=== PATIENT | female | born 1935 | race Caucasian/White ===

== ENCOUNTER → 2020-04-23 14:08 | Outpatient (BNVA) | payer MEDICARE, SELFPAY | PROVIDERS: Family Provider Nurse Practitioner; PCP Nurse Practitioner; Visit Provider Nurse Practitioner Family | DX: J02.9 Acute pharyngitis, unspecified (principal); K02.9 Dental caries, unspecified | CPT/HCPCS: 87071; 87880 ==

== ENCOUNTER → 2020-07-29 16:29 | Outpatient (BNVA) | payer MEDICARE, SELFPAY | PROVIDERS: Family Provider Nurse Practitioner; PCP Nurse Practitioner; Visit Provider Nurse Practitioner | DX: Z00.00 Encounter for general adult medical examination without abnormal findings (principal); Z13.6 Encounter for screening for cardiovascular disorders | CPT/HCPCS: 80053; 80061; 81000; 84443; 85025 ==

== ENCOUNTER 2021-04-30 08:37 | Outpatient (CLI) | payer MEDICARE, SELFPAY ==
--- NOTE | 2021-04-30 09:00 | MM_ITS ---
WS: [id number] BILATERAL DIGITAL SCREENING MAMMOGRAPHY WITH CAD CLINICAL INFORMATION: screening mammogram HISTORY: Screening mammogram. No current complaints. COMPARISON: TECHNIQUE: Bilateral CC and MLO views. FINDINGS: Scattered fibroglandular densities bilaterally. No suspicious focal mass, asymmetry, calcifications, or architectural distortion. No evidence of malignancy. MM/[place] [id number] IMPRESSION: BI-RADS: 1-Negative FOLLOW UP: 1 Year Follow-up Recommend return to annual screening mammography.
== END 2021-04-30 08:38 | disposition home or self-care (01) ==
LOC: RADSHAW 08:40
PROVIDERS: PCP Family Medicine; Visit Provider Family Medicine
DX: Z12.31 Encounter for screening mammogram for malignant neoplasm of breast (principal)
CPT/HCPCS: 77067

== ENCOUNTER → 2021-09-08 10:40 | Outpatient (BNVA) | payer MEDICARE, SELFPAY | PROVIDERS: PCP Family Medicine; Visit Provider Family Medicine | DX: E78.2 Mixed hyperlipidemia (principal); Z00.00 Encounter for general adult medical examination without abnormal findings | CPT/HCPCS: 80053; 80061; 84443; 85025 ==

== ENCOUNTER 2021-11-05 09:12 | Outpatient (CLI) | payer MEDICARE, SELFPAY ==
--- NOTE | 2021-11-05 09:26 | XR_ITS ---
WS: [id number] DEXA (DUAL ENERGY X-RAY ABSORPTIOMETRY) Bone mineral density was performed using a [email or web address] machine. HISTORY: Z78.0 - Asymptomatic menopausal state COMPARISON: None available. Lumbar spine BMD (L1-L4): 0.691 g/cm2 T score: -4.1 Z score: -1.8 Total hip BMD: Left: 0.598 g/cm2. T score: -3.3 Z score: -0.7 Right: 0.658 g/cm2. T score: -2.8 Z score: -0.2 10 year probability of a major osteoporotic fracture is 22%. XR/XR DEXA axial skeleton* [id number] IMPRESSION: OSTEOPOROSIS based upon the WHO classification for females.
== END 2021-11-05 09:13 | disposition home or self-care (01) ==
LOC: RAD 09:18
PROVIDERS: PCP Family Medicine; Visit Provider Family Medicine
DX: Z78.0 Asymptomatic menopausal state (principal); M81.0 Age-related osteoporosis without current pathological fracture
CPT/HCPCS: 77080

== ENCOUNTER → 2021-12-09 08:51 | Outpatient (BNVA) | payer MEDICARE, SELFPAY | PROVIDERS: PCP Family Medicine; Visit Provider Family Medicine | DX: E78.2 Mixed hyperlipidemia (principal) | CPT/HCPCS: 80053; 80061 ==

== ENCOUNTER 2022-03-10 13:07 | Emergency (ER) | payer MEDICARE, SELFPAY ==
[2022-03-10 13:14] VITALS: BP 173/79; PULSE 66; RESP 14; TEMP 36.8; O2SAT 99; BMI 19.3
--- NOTE | 2022-03-10 13:23 | XR_ITS ---
WS: [id number] XR knee RT 3V* [id number] REASON FOR EXAM: fall/injury FINDINGS: Transverse fracture through the inferior one third of the patella. Proximally 5 mm of separation. Suprapatellar joint effusion. The joint spaces of the right knee are relatively well-preserved. The tibia and fibula and femur are intact. XR/XR knee RT 3V* [id number] IMPRESSION: Patellar fracture as above.
--- NOTE | 2022-03-10 13:24 | ED_ITS ---
HPI - Extremity Injury (Lower) General: Chief Complaint: Extremity Problem,Nontraumatic Stated Complaint: right knee pain Time Seen by Provider: 03/10/22 13:22 Source: patient and family Mode of arrival: wheelchair Limitations: no limitations History of Present Illness: Patient is a very pleasant 86-year-old female who presents to the ED today along with her [id number] for evaluation of a right knee injury. Patient tells me she was walking on a concrete surface when her foot got tripped up and states she fell directly onto her right knee. Patient states she has not been able to bear weight on the knee since the injury. She has not noticed any swelling. She states pain is tolerable upon arrival to the ED. She denies any other injuries during the fall. She denies striking her head or LOC. MD complaint: knee injury Onset (ago): hour(s) Injury: Right: knee Type of Injury: blunt Place: home Severity: mild Relieving factors: immobilization Exacerbating factors: weight bearing, movement and palpation Context: fall and direct blow Associated symptoms: Reports inability to bear weight Other symptoms: none Review of Systems Card: Denies: chest pain, palpitations, lightheadedness, syncope or pre-syncope Resp: Denies: dyspnea GI: Denies: nausea or vomiting Musc: Reports: joint pain (R knee); Denies: neck pain, back pain, extremity pain, extremity swelling, joint swelling, joint redness or joint warmth Neuro: Denies: headache(s), numbness in extremities, weakness in extremities, sensory changes, frequent falls, dizziness, confusion, behavioral changes, Slurred speech present or difficulty communicating thoughts [facility] ED PFSH: Medical History Cystocele with prolapse History of nonmelanoma skin cancer Mixed hyperlipidemia Surgical History Hx of total hysterectomy Family History Other Cancer Denies family history of Diabetes Dementia Hypertension Stroke Social History Smoking and tobacco status: never smoked Second hand smoke exposure: No Smoking risk assessment/counseling performed?: No Alcohol intake: never Desire information about alcohol rehabilitation?: No Counseling given: No Desire information about substance/drug rehabilitation?: No Counseling given: No Adopted: No Caregiver/support person: No Lives independently: Yes Household members: spouse Housing: House Marital status: service: No Current occupation: [employer] Pets and animals: Yes History of recent travel: No Current gender identity: Female Physical Exam Const: COMMON NORMALS: no acute distress, average body habitus, patient oriented x3, no limitations, healthy appearing, alert and well nourished GENERAL APPEARANCE: cooperative ORIENTATION/CONSCIOUSNESS: Yes awake, Yes oriented to person, Yes oriented to place and Yes oriented to time HENMT: COMMON NORMALS: normocephalic and atraumatic HEAD & SCALP: normal to inspection, normocephalic and atraumatic FACE & SINUS: normal facial exam Neck/C-Spine: COMMON NORMALS: full ROM GENERAL: Yes normal visual inspection CERVICAL SPINE: Yes cervical ROM normal, No pain with cervical ROM, No Cervical spine tenderness, No step off deformity and No Paracervical muscle tenderness Back/Pelvis: COMMON NORMALS: thoracic and lumbar spine normal to inspection, no thoracic nor lumbar tenderness and thoraco-lumbar ROM normal Extremity: GENERAL: Yes normal exam except as noted RIGHT LOWER EXTREMITY: Yes knee joint (small abrasion overlying patella) Right knee: Yes inspection (no swelling noted), Yes palpation (pain to patellar with any form of ROM) and Yes neurovascular exam (normal) Neuro: NASEEM COMA SCALE: document GCS findings [place] coma scale eye opening: Spontaneous [place] coma scale verbal response: Orientated [place] coma scale motor response: Obey commands Naseem coma scale total score: 15 COMMON NORMALS: patient oriented x3, moves all extremities, no focal motor deficits and no sensory deficits noted SENSORIUM/ORIENTATION: Yes alert, Yes oriented to person, Yes oriented to place and Yes oriented to time Course Vital Signs: Vital signs: Vital Signs Temperature 98.2 F 03/10/22 13:14 Pulse Rate 66 03/10/22 13:14 Respiratory Rate 14 03/10/22 13:14 Blood Pressure 173/79 03/10/22 13:14 Pulse Oximetry 99 03/10/22 13:14 MDM - Extremity Injury (Lower) Medical Decision Making XR showing patellar fracture. Patient will be placed in knee immobilizer. We will have her be non-weightbearing and have her follow-up with orthopedics. Lab Data Radiology Impressions Knee X-Ray 03/10/22 13:23 IMPRESSION: Patellar fracture as above. Discharge Plan Discharge Patient Disposition: Home Clinical Impression: Closed fracture of right patella Qualifiers: Encounter type: initial encounter Fracture morphology: unspecified fracture morphology Fracture alignment: nondisplaced Qualified Code(s): S82.001A - Unspecified fracture of right patella, initial encounter for closed fracture Condition: Stable Prescriptions: New hydrocodone-acetaminophen 5-325 mg tablet 1 tab PO Q4H PRN (Reason: pain) Qty: 20 0RF No Action Ocuvite Adult 50 Plus 250-5-1 mg capsule 1 cap PO DAILY 0RF lutein 20 mg tablet 20 mg PO DAILY 0RF Rx Instructions: give with meal/snack elderberry fruit 200 mg capsule PO 0RF ascorbic acid (vitamin C) 1,000 mg tablet 500 mg PO DAILY 0RF magnesium oxide 400 mg magnesium capsule 400 mg PO DAILY 0RF cholecalciferol (vitamin D3) 50 mcg (2,000 unit) capsule 50 mcg PO DAILY 0RF coenzyme Q10 [Co Q-10] 100 mg capsule 100 mg PO DAILY Qty: 90 0RF Claritin-D 12 Hour 5-120 mg tablet extended release 12 hr 1 tab PO Q12H Qty: 30 0RF rosuvastatin [Crestor] 5 mg tablet 5 mg PO DAILY Qty: 90 1RF Discharge Orders: Discharge ED (Routine); Ordered 03/10/22 Ordered By: Desiree Campa Referrals: Katy Ugarte MD [Primary Care Provider] - Patient Instructions: Patellar Fracture (ED), Opioid Safety Activity Restrictions/Additional Instructions: As we discussed case management should contact you shortly to set you up with your follow-up orthopedic appointment. Patient needs to be nonweightbearing on the extremity until told otherwise by orthopedics. I have written you a prescription for pain medications. As you have mentioned- you are sensitive to pain medications thus you can take a half a tablet as needed if you feel a full tablet is too much. You may use [id number] medications such as Tylenol or Ibuprofen instead of the prescribed pain medications if this controls your pain. Coding Level of Care Code ED Veneer Glue Spreader for Margret Fwd Exam Detailed
--- NOTE | 2022-03-19 16:51 | DCPLANNER ---
manager administration had message to schedule a follow up appointment for patient with ortho. Patients information was sent to the front office staff at ortho. A follow up appointment was scheduled for 03.13.22 with Sagar at ortho - patient did attend appointment.
== END 2022-03-10 14:33 | disposition home or self-care (01) ==
PROVIDERS: Emergency Provider Physician Assistant; PCP Family Medicine
DX: S82.001A Unspecified fracture of right patella, initial encounter for closed fracture (principal); E78.2 Mixed hyperlipidemia; W01.198A Fall on same level from slipping, tripping and stumbling with subsequent striking against other object, initial encounter
CPT/HCPCS: 73562; 99283; L1830

== ENCOUNTER → 2022-03-13 09:09 | Outpatient (BNVA) | payer MEDICARE, SELFPAY | PROVIDERS: PCP Family Medicine; Referring Provider Physician Assistant; Visit Provider Nurse Practitioner Family | DX: S82.031A Displaced transverse fracture of right patella, initial encounter for closed fracture (principal); W19.XXXA Unspecified fall, initial encounter | CPT/HCPCS: 99203; 99213 ==

== ENCOUNTER → 2022-03-24 09:20 | Outpatient (BNVA) | payer MEDICARE, SELFPAY | PROVIDERS: PCP Family Medicine; Visit Provider Nurse Practitioner Family | DX: S82.001D Unspecified fracture of right patella, subsequent encounter for closed fracture with routine healing (principal); W19.XXXD Unspecified fall, subsequent encounter | CPT/HCPCS: 73560; 99213; 99214 ==

== ENCOUNTER 2022-03-24 11:31 | Outpatient (CLI) | payer MEDICARE, SELFPAY | END 2022-03-24 11:32 | disposition home or self-care (01) | LOC: SPT 11:32 | PROVIDERS: PCP Family Medicine; Visit Provider Nurse Practitioner Family | DX: Z46.89 Encounter for fitting and adjustment of other specified devices (principal); S82.034D Nondisplaced transverse fracture of right patella, subsequent encounter for closed fracture with routine healing; X58.XXXD Exposure to other specified factors, subsequent encounter | CPT/HCPCS: 97760; L1832 ==

== ENCOUNTER → 2022-04-21 10:04 | Outpatient (BNVA) | payer MEDICARE, SELFPAY | PROVIDERS: PCP Family Medicine; Visit Provider Nurse Practitioner Family | DX: S82.001A Unspecified fracture of right patella, initial encounter for closed fracture (principal); W10.9XXA Fall (on) (from) unspecified stairs and steps, initial encounter; M79.89 Other specified soft tissue disorders; S82.034D Nondisplaced transverse fracture of right patella, subsequent encounter for closed fracture with routine healing; X58.XXXD Exposure to other specified factors, subsequent encounter | CPT/HCPCS: 73562; 99213; 99214 ==

== ENCOUNTER → 2022-05-19 10:01 | Outpatient (BNVA) | payer MEDICARE, SELFPAY | PROVIDERS: PCP Family Medicine; Visit Provider Nurse Practitioner Family | DX: S82.034D Nondisplaced transverse fracture of right patella, subsequent encounter for closed fracture with routine healing (principal); X58.XXXD Exposure to other specified factors, subsequent encounter | CPT/HCPCS: 73562; 99214 ==

== ENCOUNTER → 2022-06-08 10:51 | Outpatient (BNVA) | payer MEDICARE, SELFPAY | PROVIDERS: PCP Family Medicine; Visit Provider Family Medicine | DX: J30.2 Other seasonal allergic rhinitis (principal); E78.2 Mixed hyperlipidemia; B35.1 Tinea unguium | CPT/HCPCS: 80053; 80061; 82306; 83735; 84443; 85025 ==

== ENCOUNTER → 2022-06-16 11:05 | Outpatient (BNVA) | payer MEDICARE, SELFPAY | PROVIDERS: PCP Family Medicine; Visit Provider Nurse Practitioner Family | DX: S82.034D Nondisplaced transverse fracture of right patella, subsequent encounter for closed fracture with routine healing (principal); X58.XXXD Exposure to other specified factors, subsequent encounter | CPT/HCPCS: 73562; 99213; 99214 ==

== ENCOUNTER → 2022-09-25 11:12 | Outpatient (BNVA) | payer MEDICARE, SELFPAY | PROVIDERS: PCP Family Medicine; Visit Provider Family Medicine | DX: Z46.89 Encounter for fitting and adjustment of other specified devices (principal); E78.2 Mixed hyperlipidemia; H61.20 Impacted cerumen, unspecified ear; M65.311 Trigger thumb, right thumb | CPT/HCPCS: 80053; 80061; 84443; 85025 ==

== ENCOUNTER → 2022-11-23 08:32 | Outpatient (BNVA) | payer MEDICARE, SELFPAY | PROVIDERS: PCP Family Medicine; Visit Provider Nurse Practitioner Family | DX: Z20.822 Contact with and (suspected) exposure to COVID-19 (principal); U07.1 COVID-19 | CPT/HCPCS: 87426 ==

== ENCOUNTER → 2022-12-08 14:22 | Outpatient (BNVA) | payer MEDICARE, SELFPAY | PROVIDERS: PCP Family Medicine; Visit Provider Nurse Practitioner Family | DX: M25.532 Pain in left wrist (principal); S52.502A Unspecified fracture of the lower end of left radius, initial encounter for closed fracture; W19.XXXA Unspecified fall, initial encounter | CPT/HCPCS: 73110 ==

== ENCOUNTER → 2022-12-14 14:51 | Outpatient (BNVA) | payer MEDICARE, SELFPAY | PROVIDERS: PCP Family Medicine; Referring Provider Nurse Practitioner Family; Visit Provider Student in an Organized Health Care Education/Training Program | DX: S52.502A Unspecified fracture of the lower end of left radius, initial encounter for closed fracture (principal); W19.XXXA Unspecified fall, initial encounter | CPT/HCPCS: 25600; 73110; 99204; 99214 ==

== ENCOUNTER 2022-12-14 16:23 | Outpatient (CLI) | payer MEDICARE, SELFPAY | END 2022-12-14 16:24 | disposition home or self-care (01) | LOC: SPT 16:24 | PROVIDERS: PCP Family Medicine; Visit Provider Student in an Organized Health Care Education/Training Program | DX: Z46.89 Encounter for fitting and adjustment of other specified devices (principal); S52.592D Other fractures of lower end of left radius, subsequent encounter for closed fracture with routine healing; X58.XXXD Exposure to other specified factors, subsequent encounter | CPT/HCPCS: 97760; 99204; L3982 ==

== ENCOUNTER → 2022-12-28 15:48 | Outpatient (BNVA) | payer MEDICARE, SELFPAY | PROVIDERS: PCP Family Medicine; Visit Provider Student in an Organized Health Care Education/Training Program | DX: S52.502A Unspecified fracture of the lower end of left radius, initial encounter for closed fracture (principal); X58.XXXA Exposure to other specified factors, initial encounter | CPT/HCPCS: 73110; 99213 ==

== ENCOUNTER → 2023-01-22 11:20 | Outpatient (BNVA) | payer MEDICARE, SELFPAY | PROVIDERS: PCP Family Medicine; Visit Provider Family Medicine | DX: E78.2 Mixed hyperlipidemia (principal) | CPT/HCPCS: 80053; 80061; 85025 ==

== ENCOUNTER → 2023-01-25 14:04 | Outpatient (BNVA) | payer MEDICARE, SELFPAY | PROVIDERS: PCP Family Medicine; Visit Provider Student in an Organized Health Care Education/Training Program | DX: S52.502A Unspecified fracture of the lower end of left radius, initial encounter for closed fracture (principal); X58.XXXA Exposure to other specified factors, initial encounter | CPT/HCPCS: 73110 ==

== ENCOUNTER 2023-01-25 15:02 | Outpatient (CLI) | payer MEDICARE, SELFPAY | END 2023-01-25 15:03 | disposition home or self-care (01) | LOC: SPT 15:02 | PROVIDERS: PCP Family Medicine; Visit Provider Student in an Organized Health Care Education/Training Program | DX: Z46.89 Encounter for fitting and adjustment of other specified devices (principal); S52.592D Other fractures of lower end of left radius, subsequent encounter for closed fracture with routine healing; X58.XXXD Exposure to other specified factors, subsequent encounter | CPT/HCPCS: 97760; 99213; L3908 ==

== ENCOUNTER 2023-02-11 20:12 | Emergency (ER) | payer MEDICARE, SELFPAY ==
[2023-02-11 20:32] VITALS: BMI 19.3
[2023-02-11 20:36] VITALS: BP 142/74; PULSE 95; RESP 16; TEMP 37; O2SAT 95
[2023-02-11 21:25] LABS: Hematocrit 38.2 % (37.0-47.0); Hemoglobin 11.9 g/dL (11.5-15.3); Mean Corpuscular HGB Conc 31.2 g/dL (30.0-36.0); Mean Corpuscular Hemoglobin 29.8 pg (28.0-34.0); Mean Corpuscular Volume 95.7 fl (81-99); Mean Platelet Volume 11.4 fL (7.4-10.4); Platelet Count 105 10^3/cmm (130-400); Red Blood Count 3.99 10^6/uL (4.1-5.3); Red Cell Distribution Width 13.4 % (12.1-15.1); White Blood Count 1.5 10^3/uL (4.0-10.0)
[2023-02-11 21:41] LABS: Lactic Sepsis W/Reflex 1.9 mmol/L (0.5-2.2)
[2023-02-11 21:42] LABS: Alanine Aminotransferase 14 U/L (0-33); Albumin Level 3.8 g/dL (3.5-5.2); Alkaline Phosphatase 62 U/L (35-105); Aspartate Amino Transferase 33 U/L (0-32); Blood Urea Nitrogen 20 mg/dL (8-23); Calcium 8.8 mg/dL (8.5-10.5); Carbon Dioxide 26 mmol/L (22-29); Chloride 102 mmol/L (98-107); Globulin 3.7 g/dL (1.3-4.6); Glucose 120 mg/dL (65-115); Osmolality Calculated 290 mOsm/kg (285-295); Sodium 138 mmol/L (136-145); Total Bilirubin 0.3 mg/dL (0.15-1.2); Total Protein 7.5 g/dL (6.6-8.7)
--- NOTE | 2023-02-11 21:46 | ED_ITS ---
HPI - General Adult General: Chief complaint: General Medical Stated complaint: Shaking Time Seen by Provider: 02/11/23 21:46 History of Present Illness: Ms. Nunez is an 87-year-old lady presenting to the emergency department for generalized illness. She notes subacute onset of illness approximately 6 PM with rigors and generalized malaise. Since that time she has had generalized weakness and continued chills. Denies any other focal infectious symptoms. Prior to this she was at her baseline health. Intensity symptoms moderate, at worst was severe. No other specific changes in health, exacerbating, or alleviating factors identified. Onset (ago): hour(s) Severity: moderate Associated symptoms: Reports fevers/chills and malaise Review of Systems General: Reports: 10 or more systems reviewed and unremarkable except in HPI and below Const: Reports: malaise PFSH ED PFSH: Medical History Cystocele with prolapse History of nonmelanoma skin cancer Mixed hyperlipidemia Surgical History Hx of total hysterectomy Family History Unknown Cancer mother, breast cancer sister, breast cancer 2nd sister breast cancer Unknown Cancer She denies a family hx of colon, thyroid, uterine, ovarian cancer Denies family history of Diabetes Dementia Hypertension Stroke Social History Substance/Drug Use: never Do you think of yourself as: Straight/Heterosexual Physical Exam Const: COMMON NORMALS: alert GENERAL APPEARANCE: cooperative and well developed HENMT: COMMON NORMALS: normocephalic and atraumatic HEAD & SCALP: normocephalic and atraumatic THROAT: posterior oropharynx normal Eye: COMMON NORMALS: conjunctivae normal CONJUNCTIVA: Yes conjunctivae normal SCLERA: sclerae normal Neck/C-Spine: COMMON NORMALS: supple GENERAL: Yes trachea midline Resp: COMMON NORMALS: clear to auscultation bilaterally EFFORT & INSPECTION: Yes able to speak in complete sentences AUSCULTATION: clear to auscultation bilaterally Cardio: COMMON NORMALS: regular rate and regular rhythm RATE: regular rate RHYTHM: regular rhythm GI: COMMON NORMALS: Soft to palpation PALPATION: Yes Soft to palpation and No Tenderness to palpation present (GI) Extremity: GENERAL: Yes normal exam except as noted and No edema Neuro: COMMON NORMALS: moves all extremities SENSORIUM/ORIENTATION: Yes alert and No Orientation impaired Psych: COMMON NORMALS: mental status grossly normal and Normal thought process present THOUGHT PROCESS: Normal thought process present Course Vital Signs: Vital signs: Vital Signs Temperature 98.6 F 02/11/23 20:36 Pulse Rate 88 02/12/23 01:11 Respiratory Rate 18 02/12/23 01:11 Blood Pressure 119/71 02/12/23 01:11 Pulse Oximetry 92 02/12/23 01:11 Oxygen Delivery Me thod Room Air 02/11/23 20:36 MDM - General Adult Medical Decision Making 87-year-old lady presenting with generalized illness. Somewhat ill-appearing on exam though nontoxic. Labs notable for leukopenia worse than baseline, normal hemoglobin, mild thrombocytopenia. Metabolic panel without acute derangement with exception of trace elevation in AST though in absence of right quadrant pain likely not clinically significant. Urinalysis concerning for urinary tract infection. Chest x-ray negative for consolidation or pneumothorax. Patient feels improved with IV fluids, analgesia, and also treated with antibi otics. The results of ED evaluation were discussed with the patient including prescriptions and/or symptomatic cares (if applicable) including appropriate and responsible use, followup plan, and return precautions. The patient verbalized understanding and felt safe for discharge. Medical Records I reviewed the patient's medical records. Lab Data I reviewed the patient's lab results. 02/11/23 21:13 02/11/23 21:13 Radiology Impressions Chest X-Ray 02/11/23 21:51 IMPRESSION: 1. No acute cardiopulmonary process. 2. Incidental/nonacute findings are listed in the report. Laboratory Results WBC 1.5 10^3/uL (4.0-10.0) L 02/11/23 21:13 RBC 3.99 10^6/uL (4.1-5.3) L 02/11/23 21:13 Hgb 11.9 g/dL (11.5-15.3) 02/11/23 21:13 Hct 38.2 % (37.0-47.0) 02/11/23 21:13 MCV 95.7 fl (81-99) 02/11/23 21:13 MCH 29.8 pg (28.0-34.0) 02/11/23 21:13 MCHC 31.2 g/dL (30.0-36.0) 02/11/23 21:13 RDW 13.4 % (12.1-15.1) 02/11/23 21:13 Plt Count 105 10^3/cmm (130-400) L 02/11/23 21:13 MPV 11.4 fL (7.4-10.4) H 02/11/23 21:13 Lymph % (Auto) Not Reportable 02/11/23 21:13 [place] % (Auto) Not Reportable 02/11/23 21:13 Lymph # (Auto) Not Reportable 02/11/23 21:13 [place] # (Auto) Not Reportable 02/11/23 21:13 Total Counted 100 (0-100) 02/11/23 21:13 Atypical Lymphs % 0.0 % (0-5) 02/11/23 21:13 Absolute Neutrophils 1.3 10^3/cmm (1.4-6.5) L 02/11/23 21:13 Segmented Neutrophils 82 % 02/11/23 21:13 Abs Segm Neuts (Man) 1.2 10/cmm (1.6-7.1) L 02/11/23 21:13 Band Neutrophils 4.0 % 02/11/23 21:13 Abs Band Neuts (Man) 0.1 10^3/cmm (0.0-1.2) 02/11/23 21:13 Absolute Lymphocytes 0.2 10^3/cmm (1.2-3.4) L 02/11/23 21:13 Lymphocytes (Manual) 10 % 02/11/23 21:13 Monocytes (Manual) 2.0 % 02/11/23 21:13 Absolute Monocytes 0.0 10^3/cmm (0.1-0.6) L 02/11/23 21:13 Eosinophils (Manual) 0 % 02/11/23 21:13 Absolute Eosinophils 0.0 10^3/cmm (0.0-0.7) 02/11/23 21:13 Basophils (Manual) 0.0 % 02/11/23 21: Absolute Basophils 0.0 10^3/cmm (0.0-0.2) 02/11/23 21:13 Metamyelocytes 2.0 % 02/11/23 21:13 Myelocytes 0.0 % 02/11/23 21:13 Promyelocytes 0.0 % 02/11/23 21:13 Platelet Estimate Decreased (Normal) L 02/11/23 21:13 Sodium 138 mmol/L (136-145) 02/11/23 21:13 Potassium 4.0 mmol/L (3.5-5.1) 02/11/23 21:13 Chloride 102 mmol/L (98-107) 02/11/23 21:13 Carbon Dioxide 26 mmol/L (22-29) 02/11/23 21:13 Anion Gap 14.0 (5-19) 02/11/23 21:13 BUN 20 mg/dL (8-23) 02/11/23 21:13 Creatinine 0.9 mg/dL (0.5-0.9) 02/11/23 21:13 GFR Calculation Not Reportable 02/11/23 21:13 Glucose 120 mg/dL (65-115) H 02/11/23 21:13 Calculated Osmolality 290 mOsm/kg (285-295) 02/11/23 21:13 Lactic Acid 1.9 mmol/L (0.5-2.2) 02/11/23 21:13 Calcium 8.8 mg/dL (8.5-10.5) 02/11/23 21:13 Total Bilirubin 0.3 mg/dL (0.15-1.2) 02/11/23 21:13 AST 33 U/L (0-32) H 02/11/23 21:13 ALT 14 U/L (0-33) 02/11/23 21:13 Alkaline Phosphatase 62 U/L (35-105) 02/11/23 21:13 Total Protein 7.5 g/dL (6.6-8.7) 02/11/23 21:13 Albumin 3.8 g/dL (3.5-5.2) 02/11/23 21:13 Globulin 3.7 g/dL (1.3-4.6) 02/11/23 21:13 Urine Color Yellow (Yellow) 02/11/23 21:00 Urine Appearance Hazy (CLEAR) A 02/11/23 21:00 Urine pH 6.5 (5-7) 02/11/23 21:00 Ur Specific [place] 1.020 (1.005-1.030) 02/11/23 21:00 Urine Protein Trace (Negative) 02/11/23 21:00 Urine Glucose (UA) Norm (Normal) 02/11/23 21:00 Urine Ketones Negative (Negative) 02/11/23 21:00 Urine Blood 2+ (Negative) H 02/11/23 21:00 Urine Nitrate Positive (Negative) H 02/11/23 21:00 Urine Bilirubin Neg (Negative) 02/11/23 21:00 Urine Urobilinogen Norm mg/dL (Negative) 02/11/23 21:00 Ur Leukocyte Esterase 2+ (Negative) H 02/11/23 21:00 Urine RBC 5-10 /hpf (0-2) H 02/11/23 21:00 Urine WBC 10-15 /hpf (0-5) H 02/11/23 21:00 Ur Squamous Epith Cells 0-4 /hpf (0-5) H 02/11/23 21:00 Amorphous Sediment Not Reportable 02/11/23 21:00 Urine Bacteria 4+ /hpf (NONE) H 02/11/23 21:00 Urine Mucus 2+ /hpf 02/11/23 21:00 Influenza Type A Ag negative (Negative) 02/11/23 22:02 Influenza Type B Ag negative (Negative) 02/11/23 22:02 SARS-CoV-2 Ag (Rapid) negative (Negative) 02/11/23 22:02 Discharge Plan Discharge Patient Disposition: Home Clinical Impression: Acute UTI, Leukopenia, Thrombocytopenia Condition: Stable Prescriptions: New ciprofloxacin HCl 500 mg tablet 500 mg PO BID Qty: 20 0RF No Action Ocuvite Adult 50 Plus 250-5-1 mg capsule 1 cap PO DAILY lutein 20 mg tablet 20 mg PO DAILY Rx Instructions: give with meal/snack ascorbic acid (vitamin C) 1,000 mg tablet 500 mg PO DAILY magnesium oxide 400 mg magnesium capsule 400 mg PO DAILY cholecalciferol (vitamin D3) 50 mcg (2,000 unit) capsule 50 mcg PO DAILY coenzyme Q10 [Co Q-10] 100 mg capsule 100 mg PO DAILY Qty: 90 0RF (DME) LOCKING KNEE BRACE - RIGHT See Rx Instructions .Route .MEDSUPPLY Qty: 1 0RF Rx Instructions: As directed diclofenac sodium [Voltaren Arthritis Pain] 1 % gel 2 g topical QID Qty: 100 1RF Rx Instructions: apply to thumb four times a day. (DME) Cock Up Splint See Rx Instructions .Route .MEDSUPPLY Qty: 1 0RF Rx Instructions: As directed (DME) FAST FORM COCK UP SPLINT See Rx Instructions .Route .MEDSUPPLY Qty: 1 0RF Rx Instructions: As directed magnesium citrate 4 gram packet 100 mg PO DAILY nitrofurantoin monohyd/m-cryst [Macrobid] 100 mg capsule 100 mg PO BID Rx Instructions: must administer with a meal/food krill oil 500 mg capsule 500 mg PO DAILY Qty: 90 0RF Discharge Orders: Discharge ED (Routine); Ordered 02/12/23 Ordered By: Khari Linton Referrals: Katy Ugarte MD [Primary Care Provider] - Discharge Diet: Usual diet Discharge Activity: Resume usual activity Patient Instructions: Urinary Tract Infection in Older Adults (ED) Activity Restrictions/Additional Instructions: Thank you for visiting the emergency department. You were seen evaluated for generalized illness. The most likely cause of your symptoms is related to urinary tract infection which will be treated with antibiotics. Incidentally you were noted to have mildly decreased platelet count. Please watch for any signs of bleeding or bruising. I would expect improvement with resolution of infection, please follow-up with your primary care provider for repeat lab work. You may use vwjm-urw-[id number] medications such as acetaminophen and ibuprofen for pain however please do not exceed the daily recommended dosage as listed on the packaging and please keep in mind that many namebrand medications contain the same active ingredients. Please avoid these medications if previously instructed to do so by another physician due to other underlying medical condition. Please ensure that you are staying hydrated. Return to the emergency department for uncontrolled symptoms or anything else that you are concerned about and feel needs emergency department evaluation. Coding Level of Care Code ED Technical Solution Architect for Margret Neely
[2023-02-11 21:49] LABS: Absolute Segmented Neutrophil 1.2 10/cmm (1.6-7.1); Band Neutrophils Absolute 0.1 10^3/cmm (0.0-1.2); Eosinophils 0 %; Lymphocytes 10 %; Lymphocytes Absolute 0.2 10^3/cmm (1.2-3.4); Segmented Neutrophils 82 %; Total Cells Counted 100 (0-100)
[2023-02-11 21:50] LABS: Absolute Neutrophil 1.3 10^3/cmm (1.4-6.5); Platelet Estimate Decreased (Normal)
--- NOTE | 2023-02-11 21:51 | XRR_ITS ---
PROCEDURE INFORMATION: Exam: XR Chest Exam date and time: 02/11/2023 9:54 PM Age: 87 years old Clinical indication: Cough TECHNIQUE: Imaging protocol: Radiologic exam of the chest. Views: 1 view. COMPARISON: No relevant prior studies available. FINDINGS: Lungs: Lungs are clear bilaterally. Pleural spaces: No pleural effusion. No pneumothorax. Heart/Mediastinum: Cardiac silhouette is moderately enlarged. Mediastinal contours are unremarkable. Vasculature: Vascular calcifications in the aorta. The aorta is tortuous. Bones/joints: Unremarkable for age. XR/XR chest 1V portable [id number] IMPRESSION: 1. No acute cardiopulmonary process. 2. Incidental/nonacute findings are listed in the report.
[2023-02-11 22:05] LABS: Blood Urine 2+ (Negative); Glucose Urine UA Norm (Normal); Ketones Urine Negative (Negative); Protein Urine Trace (Negative); Urine Appearance Hazy (CLEAR); Urine Color Yellow (Yellow); pH Urine 6.5 (5-7)
[2023-02-11 22:06] LABS: Add Urine Microscopic? YES; Bacteria Urine 4+ /hpf; Bilirubin Urine Neg (Negative); Leukocyte Esterase Urine 2+ (Negative); Nitrate Urine Positive (Negative); Squamous Epithelial Cell Urine 0-4 /hpf (0-5); Urobilinogen Urine Norm (Negative)
[2023-02-11 22:07] LABS: Add Urine Culture? Yes; Mucus Urine 2+ /hpf
[2023-02-11] MEDS: sodium chloride 0.9% 1,000 ML 999 ML IV (22:07)
[2023-02-11 22:28] LABS: Influenza A by IFA negative (Negative); Influenza B by IFA negative (Negative)
[2023-02-11 22:29] LABS: SARS Covid-2 Antigen negative (Negative)
[2023-02-11] MEDS: cefTRIAXone 1,000 MG in sodium chloride 0.9% (plus) 50 ML 100 MG IV (23:11)
[2023-02-12 01:11] VITALS: BP 119/71; PULSE 88; RESP 18; O2SAT 92
== END 2023-02-12 01:13 | disposition home or self-care (01) ==
PROVIDERS: Emergency Medicine; Emergency Provider Emergency Medicine; PCP Family Medicine
DX: N39.0 Urinary tract infection, site not specified (principal); D69.6 Thrombocytopenia, unspecified; D72.819 Decreased white blood cell count, unspecified
CPT/HCPCS: 36415; 71045; 80053; 81001; 83605; 85007; 85025; 87040; 87077; 87086; 87150; 87186; 87205; 87426; 87804; 96365; 99284; J0696; J7030

== ENCOUNTER → 2023-03-08 08:36 | Outpatient (BNVA) | payer MEDICARE, SELFPAY | PROVIDERS: PCP Family Medicine; Visit Provider Family Medicine | DX: N39.0 Urinary tract infection, site not specified (principal) | CPT/HCPCS: 81003 ==

== ENCOUNTER 2023-03-23 11:51 | Outpatient (CLI) | payer MEDICARE, SELFPAY ==
--- NOTE | 2023-03-23 12:04 | XRR_ITS ---
PROCEDURE INFORMATION: Exam: XR Lumbosacral Spine Exam date and time: 03/23/2023 12:06 PM Age: 87 years old Clinical indication: Pain and injury or trauma; Fall; Blunt trauma (contusions or hematomas); Low back pain; Injury date: Week ago; Additional info: M54.50 - low back pain, unspecified TECHNIQUE: Imaging protocol: Radiologic exam of the lumbosacral spine. Views: 2 or 3 views. COMPARISON: No relevant prior studies available. FINDINGS: Bones/joints: Spinal alignment is normal. Moderate superior endplate compression fracture at L4. Moderate superior endplate compression fracture at L1. Moderate diffuse lumbar facet spondylosis. No acute fracture. The visible portion of the pelvis and sacrum is intact. There is mild broad-based convex-right curvature of the lumbar spine centered at L3. Bones are diffusely osteopenic. Soft tissues: Unremarkable. Gastrointestinal tract: There is gaseous distention of bowel throughout the abdomen. XR/XR lumbar spine 2-3V* [id number] IMPRESSION: 1. Age-indeterminate compression fractures at L4 and L1. 2. Lumbar facet degeneration. 3. Osteopenia. 4. Diffuse gaseous distention of bowel. Nonspecific.
== END 2023-03-23 11:52 | disposition home or self-care (01) ==
LOC: RAD 11:56
PROVIDERS: PCP Family Medicine; Visit Provider Family Medicine
DX: S32.048A Other fracture of fourth lumbar vertebra, initial encounter for closed fracture (principal); S32.018A Other fracture of first lumbar vertebra, initial encounter for closed fracture; W19.XXXA Unspecified fall, initial encounter; M47.816 Spondylosis without myelopathy or radiculopathy, lumbar region; M85.88 Other specified disorders of bone density and structure, other site; K63.89 Other specified diseases of intestine
CPT/HCPCS: 72100

== ENCOUNTER 2023-05-11 14:36 | Outpatient (CLI) | payer MEDICARE, SELFPAY | END 2023-05-11 14:37 | disposition home or self-care (01) | LOC: SPT 14:37 | PROVIDERS: PCP Family Medicine; Visit Provider Family Medicine | DX: Z46.89 Encounter for fitting and adjustment of other specified devices (principal); S32.000D Wedge compression fracture of unspecified lumbar vertebra, subsequent encounter for fracture with routine healing; X58.XXXD Exposure to other specified factors, subsequent encounter | CPT/HCPCS: L0637 ==

== ENCOUNTER → 2023-07-21 17:52 | Outpatient (BNVA) | payer MEDICARE, SELFPAY | PROVIDERS: PCP Family Medicine; Visit Provider Family Medicine | DX: J02.9 Acute pharyngitis, unspecified (principal); R09.81 Nasal congestion; B35.1 Tinea unguium; L60.0 Ingrowing nail; N39.0 Urinary tract infection, site not specified; R32 Unspecified urinary incontinence | CPT/HCPCS: 81003 ==

== ENCOUNTER → 2023-07-23 11:02 | Outpatient (BNVA) | payer MEDICARE, SELFPAY | PROVIDERS: PCP Family Medicine; Visit Provider Podiatrist Foot & Ankle Surgery | DX: B35.1 Tinea unguium (principal); L60.0 Ingrowing nail | CPT/HCPCS: 99203 ==

== ENCOUNTER → 2023-09-20 10:26 | Outpatient (BNVA) | payer MEDICARE, SELFPAY | PROVIDERS: PCP Family Medicine; Visit Provider Family Medicine | DX: R30.0 Dysuria (principal); I10 Essential (primary) hypertension; E78.2 Mixed hyperlipidemia; R32 Unspecified urinary incontinence | CPT/HCPCS: 80053; 80061; 81003; 84443; 85025 ==

== ENCOUNTER → 2023-12-01 13:34 | Outpatient (BNVA) | payer MEDICARE, SELFPAY | PROVIDERS: PCP Family Medicine; Visit Provider Family Medicine | DX: R50.9 Fever, unspecified (principal) | CPT/HCPCS: 87400 ==

== ENCOUNTER → 2023-12-22 15:18 | Outpatient (BNVA) | payer MEDICARE, SELFPAY | PROVIDERS: PCP Family Medicine; Visit Provider Nurse Practitioner Family | DX: N39.0 Urinary tract infection, site not specified (principal) | CPT/HCPCS: 81003; 87086 ==

== ENCOUNTER → 2024-01-07 10:18 | Outpatient (BNVA) | payer MEDICARE, SELFPAY | PROVIDERS: PCP Family Medicine; Visit Provider Nurse Practitioner Family | DX: N30.00 Acute cystitis without hematuria (principal); E78.2 Mixed hyperlipidemia; I10 Essential (primary) hypertension | CPT/HCPCS: 80053; 80061; 81003; 85025; 87086 ==

== ENCOUNTER → 2024-05-26 10:27 | Outpatient (BNVA) | payer MEDICARE, SELFPAY | PROVIDERS: PCP Family Medicine; Visit Provider Nurse Practitioner Family | DX: R30.0 Dysuria (principal) | CPT/HCPCS: 81003; 87077; 87086; 87184 ==

== ENCOUNTER → 2024-06-19 11:40 | Outpatient (BNVA) | payer MEDICARE, SELFPAY | PROVIDERS: PCP Nurse Practitioner Family; Visit Provider Nurse Practitioner Family | DX: R39.9 Unspecified symptoms and signs involving the genitourinary system (principal) | CPT/HCPCS: 81000 ==

== ENCOUNTER → 2024-07-14 14:39 | Outpatient (BNVA) | payer MEDICARE, SELFPAY | PROVIDERS: PCP Nurse Practitioner Family; Visit Provider Nurse Practitioner Family | DX: R30.0 Dysuria (principal) | CPT/HCPCS: 81000 ==

== ENCOUNTER → 2024-07-25 15:10 | Outpatient (BNVA) | payer MEDICARE, SELFPAY | PROVIDERS: PCP Nurse Practitioner Family; Visit Provider Nurse Practitioner Family | DX: R30.0 Dysuria (principal); E78.2 Mixed hyperlipidemia; N30.00 Acute cystitis without hematuria; I10 Essential (primary) hypertension | CPT/HCPCS: 80053; 80061; 81000; 84443; 85025; 87077; 87086; 87184 ==

== ENCOUNTER → 2024-10-05 13:36 | Outpatient (BNVA) | payer MEDICARE, SELFPAY | PROVIDERS: PCP Nurse Practitioner Family; Visit Provider Nurse Practitioner Family | DX: D22.5 Melanocytic nevi of trunk (principal); L81.4 Other melanin hyperpigmentation; L30.8 Other specified dermatitis; Z08 Encounter for follow-up examination after completed treatment for malignant neoplasm; Z85.828 Personal history of other malignant neoplasm of skin; L53.8 Other specified erythematous conditions; R20.8 Other disturbances of skin sensation; L57.0 Actinic keratosis | CPT/HCPCS: 17000; 17110; 99214 ==

== ENCOUNTER → 2024-12-05 14:30 | Outpatient (BNVA) | payer MEDICARE, SELFPAY | PROVIDERS: PCP Nurse Practitioner Family; Visit Provider Nurse Practitioner Family | DX: I10 Essential (primary) hypertension (principal); E78.2 Mixed hyperlipidemia | CPT/HCPCS: 80053; 80061; 81000; 85025 ==

== ENCOUNTER → 2025-02-22 11:26 | Outpatient (BNVA) | payer MEDICARE, SELFPAY | PROVIDERS: PCP Nurse Practitioner Family; Visit Provider Nurse Practitioner Family | DX: J02.9 Acute pharyngitis, unspecified (principal) | CPT/HCPCS: 87071; 87880 ==

== ENCOUNTER → 2025-04-26 09:20 | Outpatient (BNVA) | payer MEDICARE, SELFPAY | PROVIDERS: PCP Nurse Practitioner Family; Visit Provider Nurse Practitioner Family | DX: L57.8 Other skin changes due to chronic exposure to nonionizing radiation (principal); L81.4 Other melanin hyperpigmentation; D22.5 Melanocytic nevi of trunk; L82.1 Other seborrheic keratosis; B07.8 Other viral warts; R20.8 Other disturbances of skin sensation; Z78.9 Other specified health status; R58 Hemorrhage, not elsewhere classified; L53.8 Other specified erythematous conditions; L29.89 Other pruritus; L82.0 Inflamed seborrheic keratosis; L57.0 Actinic keratosis | CPT/HCPCS: 17000; 17110; 99213 ==

== ENCOUNTER → 2025-06-04 11:12 | Outpatient (BNVA) | payer MEDICARE, SELFPAY | PROVIDERS: PCP Nurse Practitioner Family; Visit Provider Nurse Practitioner Family | DX: I10 Essential (primary) hypertension (principal); N39.46 Mixed incontinence; E78.2 Mixed hyperlipidemia; R73.09 Other abnormal glucose | CPT/HCPCS: 80053; 80061; 83036; 85025 ==